=== PATIENT | female | born 1955 | race Caucasian/White ===

== ENCOUNTER → 2018-06-14 | Outpatient (CLI) | payer OTHER ==
[2015-08-06 13:35] VITALS: BP 143/74
--- NOTE | 2018-06-14 16:59 | KCIC ---
MRI of the brain without contrast 06/14/2018 Clinical History: Decreased vision in right eye since April. Technique: Unenhanced T1-weighted sagittal and axial, T2-weighted axial and coronal and FLAIR, gradient echo and diffusion-weighted axial images of the brain were obtained. Findings: No previous imaging studies are available for comparison. There is generalized parenchymal atrophy. Patchy and multiple small focal areas of increased signal intensity are seen within the periventricular and subcortical white matter of both cerebral hemispheres on the FLAIR and T2-weighted images consistent most likely with areas of small vessel ischemic disease. No acute parenchymal abnormality is seen. No extra-axial fluid collection is seen. There is no MRI evidence of acute ischemia/infarction. The orbits are within normal limits. Mild mucosal thickening in seen scattered throughout the paranasal sinuses. There are moderate sized bilateral mastoid effusions. Normal flow voids are seen within the major vascular structures surrounding the brain parenchyma. Impression: No acute parenchymal abnormality is seen. Electronically signed by: Junior Munoz MD (06/14/2018 4:56 PM) [id number]
--- NOTE | 2018-06-14 17:01 | KCIC ---
MRA of the brain without contrast 06/14/2018 Clinical History: Worsening right-sided vision loss. Technique: Using 3-D time of flight techniques, a MRA of the major arterial structures surrounding the [place] was performed. Findings: Comparison is made to the patient's MRI of the brain performed concurrently with this examination. MRA images of the anterior and posterior circulations are within normal limits. No area of stenosis or occlusion is seen. No intracranial aneurysm is seen. Impression: Negative study. Electronically signed by: Junior Munoz MD (06/14/2018 4:59 PM) [id number]
== END | disposition home or self-care (01) ==
LOC: KCIC MRI 10:01
DX: H47.011 Ischemic optic neuropathy, right eye (principal); H74.8X3 Other specified disorders of middle ear and mastoid, bilateral; G31.9 Degenerative disease of nervous system, unspecified
CPT/HCPCS: 70544; 70551